=== PATIENT | female | born 1990 | race Caucasian/White ===

== ENCOUNTER 2024-08-14 11:14 | Emergency (ER) | payer OTHER, SELFPAY ==
[2024-08-14 11:16] VITALS: BP 142/76; PULSE 104; TEMP 36.7; O2SAT 94; BMI 44.3
--- NOTE | 2024-08-14 11:23 | ECG_ITS ---
[facility] Test Date: 2024-08-14 Pat Name: Mally Wall Department: Room: - Gender: Female Director Oncology: : 1990 Requested By: [id number] Order Number: [id number] Reading MD: TAMI NUNEZ Measurements Intervals [place] Rate: 98 P: 21 MN: 108 QRS: 42 QRSD: 84 T: 61 QT: 334 QTc: 390 Interpretive Statements 1100 Sinus rhythm 2210 Short MN interval 9150 abnormal ECG Compared to ECG 06/15/2022 10:27:52 Short MN interval now present Electronically Signed On 08-14-2024 20:13:20 EST by TAMI NUNEZ
--- NOTE | 2024-08-14 11:45 | ED.GENADUL1 ---
HPI HPI - General Adult General Chief complaint: Psychiatric Symptoms Stated complaint: SUCIDIAL Time Seen by Provider: 08/14/24 11:16 Mode of arrival: walk-in History of Present Illness HPI narrative: Patient presents to ED for suicidal ideation. Patient states she has a history of schizophrenia. She said 2 months ago she got a new doctor and they did not change her medication around although she felt like she needed her medication changed at that time. She decided to quit her medication cold turkey. She then switched over to her medical marijuana and increased use of her medical marijuana over the past couple of months. She said she is using a lot more than she should and using that to self medicate. She said she is driving to [place] to get it and she is not even exactly sure what is in the marijuana. She said she decided to quit that cold turkey a couple of days ago and she has had nausea vomiting and shakes chills and overall not feeling well. She continued to refuse to come into the hospital. A couple of days she also tried to kill herself. She said she was on her way into the shower with a bag of pills and a bottle of liquor. Her sister caught her, she did not take any pills or drink any alcohol. Since then for the past couple of days her sister and her mother have been watching her at all times and she has not attempted any other self-harm. The patient states she just does not know what to do anymore and she is giving up and she needs help. The family said they were going to force her to come in so they called 911 this morning and she was brought in for further evaluation of an suicidal ideation. Related Data Home Medications ?Medication ?Instructions ?Recorded ?Confirmed No Known Home Medications 08/14/24 08/14/24 Allergies Allergy/AdvReac Type Severity Reaction Status Date / Time doxycycline AdvReac Severe Anaphylaxis Verified 08/14/24 11:16 quetiapine (From Seroquel) AdvReac Severe Irritable Verified 08/14/24 11:16 topiramate (From Topamax) AdvReac Severe Confusion Verified 08/14/24 11:16 Opioid HPI Opioid Management Most Recent Opioid Data: Ur Phencyclidine Scrn Negative (NEGATIVE) 08/14/24 11:22 08/14/24 Review of Systems ROS Status of ROS 10 or more systems reviewed and unremarkable except as noted in history and below PFSH PFSH Social History Little interest or pleasure in doing things: nearly every day Feeling down, depressed, or hopeless: nearly every day Exam Narrative Exam Narrative: General: alert, no acute distress Cardiovascular: regular rate and rhythm, normal peripheral perfusion. Respiratory: Lungs CTA, respirations non labored. Extremities: no deformity, no trauma. Neurological: oriented x 4, LOC appropriate for age. Suicidal ideation, depression Constitutional Vital Signs, click to edit/add: Last Vital Signs Temp 98.1 F 08/14/24 11:16 Pulse 104 H 08/14/24 11:16 Resp 18 08/14/24 11:16 BP 142/76 H 08/14/24 11:16 Pulse Ox 94 L 08/14/24 11:16 O2 Del Method Room Air 08/14/24 11:16 Course Vital Signs Vital signs: Vital Signs Temperature 98.1 F 08/14/24 11:16 Pulse Rate 104 H 08/14/24 11:16 Respiratory Rate 18 08/14/24 11:16 Blood Pressure 142/76 H 08/14/24 11:16 Pulse Oximetry 94 L 08/14/24 11:16 Oxygen Delivery Method Room Air 08/14/24 11:16 Temperature 98.1 F 08/14/24 11:16 Pulse Rate 104 H 08/14/24 11:16 Respiratory Rate 18 08/14/24 11:16 Blood Pressure 142/76 H 08/14/24 11:16 Pulse Oximetry 94 L 08/14/24 11:16 Oxygen Delivery Method Room Air 08/14/24 11:16 Medical Decision Making MDM Narrative Medical decision making narrative: Patient's labs are stable. Patient had consultation with crisis line. Patient is excepted at [address] for her schizoaffective disorder and her suicidal ideation. Patient is stable and agreeable to transfer of care Differential Diagnosis Differential Diagnosis: Schizophrenia suicidal ideation depression Lab Data Lab results reviewed: Yes I reviewed the patient's lab results Labs: Lab Results 08/14/24 08/14/24 Range/Units 11:22 11:48 WBC 8.2 (4.0-11.0) 10^3/uL RBC 4.89 (4.20-5.40) 10^6/uL Hgb 14.4 (12.0-16.0) g/dL Hct 42.1 (36.0-48.0) % MCV 86.1 (81.0-99.0) fL MCH 29.4 (26.7-34.0) pg MCHC 34.2 (29.9-35.2) g/dL RDW 12.8 (11.0-15.0) % Plt Count 358 (150-450) 10^3/uL MPV 9.6 (9.5-13.5) fL Neut % (Auto) 64.7 (43.0-75.0) % Lymph % (Auto) 20.0 L (20.5-60.0) % [place] % (Auto) 7.6 (1.7-12.0) % Eos % (Auto) 5.2 (0.9-7.0) % Baso % (Auto) 0.8 (0.2-2.0) % Neut # (Auto) 5.3 (1.4-6.5) 10^3/uL Lymph # (Auto) 1.7 (1.2-3.8) 10^3/uL [place] # (Auto) 0.6 (0.3-0.8) 10^3/uL Eos # (Auto) 0.4 (0.0-0.7) 10^3/uL Baso # (Auto) 0.1 (0.0-0.1) 10^3/uL Abs Immat Gran (auto) 0.14 H (0.00-0.03) 10^3/uL Imm/Tot Granulo (auto) 1.7 H (0.0-0.5) % Sodium 142 (136-145) mmol/L Potassium 4.2 (3.5-5.1) mmol/L Chloride 105 (98-107) mmol/L Carbon Dioxide 26.8 (21.0-32.0) mmol/L Anion Gap 14.4 BUN 4.0 L (7.0-18.0) mg/dL Creatinine 0.76 (0.55-1.02) mg/dL Est GFR ( Amer) >60 (>=60 mL/min/1.73m^2) Est GFR (Non-Af Amer) >60 (>=60 mL/min/1.73m^2) BUN/Creatinine Ratio 5.3 Glucose 113 H (74-106) mg/dL Calcium 9.0 (8.5-10.1) mg/dL Total Bilirubin 0.3 (0.2-1.0) mg/dL AST 22 (15-37) U/L ALT 53 (14-59) U/L Alkaline Phosphatase 73 (46-116) U/L Total Protein 7.5 (6.4-8.2) g/dL Albumin 3.8 (3.4-5.0) g/dL Globulin 3.7 g/dL Albumin/Globulin Ratio 1.0 Urine Color Lt. yellow (YELLOW) Urine Clarity Sl cloudy (CLEAR) Urine pH 8.0 (5.0-9.0) Ur Specific [place] 1.020 (1.005-1.025) Urine Protein Negative (NEG/TRACE) mg/dL Urine Glucose (UA) Negative (NEGATIVE) mg/dL Urine Ketones Negative (NEGATIVE) mg/dL Urine Occult Blood Negative (NEGATIVE) Urine Nitrite Negative (NEGATIVE) Urine Bilirubin Negative (NEGATIVE) Urine Urobilinogen 0.2 (0.2-1.0) EU/dL Ur Leukocyte Esterase Small A (NEGATIVE) Urine RBC 0-2 (0-2) #/HPF Urine WBC 5-10 A (NONE SEEN) #/HPF Ur Squamous Epith Cells Many A (NONE/RARE) #/LPF Urine Crystals None seen (None Seen) #/HPF Urine Bacteria Moderate A (NONE SEEN) #/HPF Urine Casts None seen (NONE SEEN) #/LPF Urine Mucus None seen (NONE SEEN) Ur Culture Indicated? Yes Urine HCG, Qual Negative (NEGATIVE) Urine Opiates Screen Negative (NEGATIVE) Ur Buprenorphine Scrn Negative (NEGATIVE) Ur Oxycodone Screen Negative (NEGATIVE) Urine Methadone Screen Negative (NEGATIVE) Ur Barbiturates Screen Negative (NEGATIVE) U Tricyclic Antidepress Negative (NEGATIVE) Ur Phencyclidine Scrn Negative (NEGATIVE) Ur Amphetamines Screen Negative (NEGATIVE) U Methamphetamines Scrn Negative (NEGATIVE) U Benzodiazepines Scrn Negative (NEGATIVE) Urine Cocaine Screen Negative (NEGATIVE) U Cannabinoids Screen Positive A (NEGATIVE) Ethanol Quant <3 mg/dL ECG Data Attestation: I personally reviewed and interpreted this ECG as follows: Interpretation: EKG INTERPRETATION Time: [] 1117 Rate: [] 98 Rhythm: _ [] Normal sinus rhythm ST segments: _ [] No acute ST elevation or depression T waves: _ [] Ectopy: _ [] P wave/CA interval: _ [] QRS interval: _ [] QT interval: _ [] Comparison: _ [] Comparison EKG date: [] Performed by: [self] Discharge Plan Discharge Chief Complaint: Psychiatric Symptoms Clinical Impression: Depression, Suicidal ideation, Schizoaffective disorder Patient Disposition: [facility] Time of Disposition Decision: 14:03 Discharge Location: [facility] Mode of Transportation: EMS Prescriptions / Home Meds: No Action No Known Home Medications Print Language: Armenian Referrals: CHLOÉ MCKINNON [Primary Care Provider] - 1 week
[2024-08-14 11:52] LABS: Bilirubin Urine NEGATIVE (NEGATIVE); Blood Urine NEGATIVE (NEGATIVE); Clarity Urine SL CLOUDY (CLEAR); Color Urine LT. YELLOW (YELLOW); Glucose Urine UA NEGATIVE (NEGATIVE); Ketones Urine NEGATIVE (NEGATIVE); Leukocyte Esterase Urine SMALL (NEGATIVE); Nitrite Urine NEGATIVE (NEGATIVE); Protein Urine NEGATIVE (NEG/TRACE); Urobilinogen Urine 0.2 EU/dL (0.2-1.0)
[2024-08-14 11:54] LABS: HCG Qualitative Urine* NEGATIVE (NEGATIVE); Internal Control Within Normal Limits
[2024-08-14 12:04] LABS: Bacteria Urine MODERATE #/HPF (NONE SEEN); Cast Seen? NONE SEEN #/LPF (NONE SEEN); Crystals Seen? None Seen #/HPF (None Seen); Mucus Urine NONE SEEN (NONE SEEN); RBC Urine 0-2 #/HPF (0-2); Squamous Epithelial Cell Urine MANY #/LPF (NONE/RARE)
[2024-08-14 12:04] LABS: Basophils Absolute Auto 0.1 10^3/uL (0.0-0.1); Basophils Percent Auto 0.8 % (0.2-2.0); Eosinophils Absolute Auto 0.4 10^3/uL (0.0-0.7); Eosinophils Percent Auto 5.2 % (0.9-7.0); Hematocrit 42.1 % (36.0-48.0); Hemoglobin 14.4 g/dL (12.0-16.0); Immature Granulocytes Abs Auto 0.14 10^3/uL (0.00-0.03); Immature Granulocytes Pct Auto 1.7 % (0.0-0.5); Lymphocytes Absolute Auto 1.7 10^3/uL (1.2-3.8); Mean Corpuscular HGB Conc 34.2 g/dL (29.9-35.2); Mean Corpuscular Hemoglobin 29.4 pg (26.7-34.0); Mean Corpuscular Volume 86.1 fL (81.0-99.0); Mean Platelet Volume 9.6 fL (9.5-13.5); Monocytes Absolute Auto 0.6 10^3/uL (0.3-0.8); Monocytes Percent Auto 7.6 % (1.7-12.0); Neutrophils Absolute Auto 5.3 10^3/uL (1.4-6.5); Neutrophils Percent Auto 64.7 % (43.0-75.0); Platelet Count 358 10^3/uL (150-450); Red Blood Count 4.89 10^6/uL (4.20-5.40); Red Cell Distribution Width 12.8 % (11.0-15.0); White Blood Count 8.2 10^3/uL (4.0-11.0)
[2024-08-14 12:05] LABS: Urine Culture Indicated YES
[2024-08-14 12:10] LABS: Amphetamine Screen Urine NEGATIVE (NEGATIVE); Barbiturates Screen Urine NEGATIVE (NEGATIVE); Benzodiazepines Screen Urine NEGATIVE (NEGATIVE); Buprenorphine Screen Urine NEGATIVE (NEGATIVE); Cannabinoid Screen Urine POSITIVE (NEGATIVE); Cocaine Screen Urine NEGATIVE (NEGATIVE); Methadone Screen Urine NEGATIVE (NEGATIVE); Methamphetamines Screen Urine NEGATIVE (NEGATIVE); Opiate Screen Urine NEGATIVE (NEGATIVE); Oxycodone Screen Urine NEGATIVE (NEGATIVE); Phencyclidine Screen Urine NEGATIVE (NEGATIVE); Tricyclic Antidepressant Urine NEGATIVE (NEGATIVE)
--- NOTE | 2024-08-14 12:13 | PC.NURSE ---
Patient speaking with Liat from [facility] at this time.
--- NOTE | 2024-08-14 12:18 | PC.NURSE ---
Awaiting call back from crisis counselor, patient has spoken to intake.
[2024-08-14 12:22] LABS: Alanine Aminotransferase 53 U/L (14-59); Albumin Level 3.8 g/dL (3.4-5.0); Alkaline Phosphatase 73 U/L (46-116); Anion Gap 14.4; Aspartate Amino Transferase 22 U/L (15-37); BUN Creatinine Ratio 5.3; Bilirubin Total 0.3 mg/dL (0.2-1.0); Carbon Dioxide 26.8 mmol/L (21.0-32.0); Chloride 105 mmol/L (98-107); Estimated GFR (African America >60 (>=60 mL/min/1.73m^2); Estimated GFR (Non-African Ame >60 (>=60 mL/min/1.73m^2); Globulin 3.7 g/dL; Glucose 113 mg/dL (74-106); Potassium 4.2 mmol/L (3.5-5.1); Sodium 142 mmol/L (136-145); Total Protein 7.5 g/dL (6.4-8.2)
[2024-08-14 14:01] LABS: Ethanol <3 mg/dL
--- NOTE | 2024-08-14 14:37 | PC.NURSE ---
Report called to nurse Martinez at [facility].
--- NOTE | 2024-08-14 15:22 | PC.NURSE ---
[facility] arrives at this time for transport to [facility].
== END 2024-08-14 15:23 ==
PROVIDERS: Emergency Provider Emergency Medicine; PCP Family Medicine
DX: F20.9 Schizophrenia, unspecified (principal); R45.851 Suicidal ideations; F32.A Depression, unspecified; R82.998 Other abnormal findings in urine; T50.906A Underdosing of unspecified drugs, medicaments and biological substances, initial encounter; Z91.128 Patient's intentional underdosing of medication regimen for other reason
CPT/HCPCS: 36415; 80053; 80307; 80320; 81001; 84703; 85025; 87086; 93005; 99285